=== PATIENT | male | born 1945 | race Caucasian/White ===

== ENCOUNTER 2016-10-22 06:35 | Day surgery (SDC) | payer MEDICARE, OTHER ==
[~2016-10-22] VITALS: Ht 193 cm; Wt 96.2 kg
--- NOTE | ~2016-10-22 | EGD ---
EGD REPORT [facility] [address]. [address] NAME: JUAN GARCIA : [birth year] STATUS : [facility] [place] PAT#: [id number] AGE: 71 ADM/REG DATE : 10/22/16 MR#: [id number] REPORT SERV DATE: 10/22/16 DICTATED BY: TADEO COOPER DATE: 10/22/16 REPORT STATUS : Draft TRANSCRIBED BY: [employer] DATE: 10/22/16 Endoscopy Center Patient Name: Juan Garcia Date of : 1945 Attending MD: TADEO COOPER MD Procedure Date No Time: 10/22/2016 Procedure: Colonoscopy Indications: High risk colon cancer surveillance: Personal history of colonic polyps Referring MD: ZBIGNIEW SALAS MD Medicines: as per anesthesia Complications: No immediate complications. Procedure: Pre-Anesthesia Assessment: - ASA Grade Assessment: III - A patient with severe systemic disease. After I obtained informed consent, the scope was passed under direct vision. Throughout the procedure, the patient's blood pressure, pulse, and oxygen saturations were monitored continuously. The PCF [id number] was introduced through the anus and advanced to the cecum, identified by appendiceal orifice and ileocecal valve. The colonoscopy was performed without difficulty. The patient tolerated the procedure. The quality of the bowel preparation was adequate to identify polyps. Findings: The perianal and digital rectal examinations were normal. A sessile polyp was found in the descending colon. The polyp was 5 mm in size. The polyp was removed with a jumbo cold forceps. Resection and retrieval were complete. Multiple small and large-mouthed diverticula were found in the sigmoid colon, in the descending colon and in the transverse colon. Internal hemorrhoids were found during endoscopy and were mild. Impression: - One 5 mm polyp in the descending colon. Resected and retrieved. - Diverticulosis in the sigmoid colon, in the descending colon and in the transverse colon. - Internal hemorrhoids. Recommendation: - Await pathology results. - Repeat colonoscopy for surveillance based on pathology results. Procedure Code(s): --- Professional --- EGD REPORT [facility] [address]. [address] NAME: JUAN GARCIA : [birth year] STATUS : [facility] [place] PAT#: [id number] AGE: 71 ADM/REG DATE : 10/22/16 MR#: [id number] REPORT SERV DATE: 10/22/16 DICTATED BY: TADEO COOPER DATE: 10/22/16 REPORT STATUS : Draft TRANSCRIBED BY: [employer] DATE: 10/22/16 [id number], Colonoscopy, flexible, proximal to splenic flexure; with biopsy, single or multiple Diagnosis Code(s): --- Professional --- D12.4, Benign neoplasm of descending colon K64.8, Other hemorrhoids K57.30, Diverticulosis of large intestine without perforation or abscess without bleeding Z86.010, Personal history of colonic polyps CPT copyright 2013 [employer]. All rights reserved. The codes documented in this report are preliminary and upon finishing wire sawyer review may be revised to meet current compliance requirements. TADEO COOPER MD 10/22/2016 8:59 AM This report has been signed electronically. Number of Addenda: 0 Note Initiated On: 10/22/2016 8:21 AM Scope Withdrawal Time 0 hours 9 minutes 57 seconds [address] [address]
[~2016-10-22 06:35] MED LIST: ASAB PO; ATEN50 PO; CENTRUM SILVER PO; CIALIS5 MG PO; COQ10100 MG OR; CRESTOR20 MG PO; FLEXI JOIN1 PO; GARLIQUE PO; KEPPRA500 PO; KYLIC PO; L20 PO; LECITHIN PO; LOTE40 PO; LOVAZA1 GM PO; NIACIN 500 PO; PREV30 PO; PRILO PO; VITC500 PO; VITE PO; [UNRECOGNIZED DRUG - CODE] PO
== END 2016-10-22 23:59 | disposition home or self-care (01) ==
LOC: DMU 06:35
PROVIDERS: Internal Medicine Gastroenterology
PROC: 0DBM8ZX Excision of Descending Colon, Via Natural or Artificial Opening Endoscopic, Diagnostic (ICD-10-PCS; principal; 2016-10-22 08:00)
DX: Z12.11 Encounter for screening for malignant neoplasm of colon (principal); D12.4 Benign neoplasm of descending colon; K57.30 Diverticulosis of large intestine without perforation or abscess without bleeding; K64.8 Other hemorrhoids; I10 Essential (primary) hypertension; K21.9 Gastro-esophageal reflux disease without esophagitis; Z86.010 Personal history of colon polyps; Z79.82 Long term (current) use of aspirin; Z79.899 Other long term (current) drug therapy; Z85.528 Personal history of other malignant neoplasm of kidney; Z90.89 Acquired absence of other organs; Z98.890 Other specified postprocedural states
CPT/HCPCS: 88305